=== PATIENT | male | born 1955 | race Caucasian/White ===

== ENCOUNTER 2024-02-25 09:34 | Emergency (ER) | payer MEDICARE, SELFPAY ==
[2024-02-25 09:38] VITALS: BP 126/82
--- NOTE | 2024-02-25 11:06 | ED.GENMED ---
History of Present Illness
General
Chief Complaint: Musculo-Skeletal Complaint
Source: patient
Exam Limitations: none
Time Seen by Provider: 02/25/24 10:03
Nursing documentation reviewed up to this point in time: agreed with
History of Present Illness
History of Present Illness:
The patient is a pleasant 68-year-old man who reports that he stubbed his right fifth toe against a drawer under a bed 2 nights ago. Patient reports that he has had pain in his right fifth toe ever since then. He reports that initially the toes
seemed dislocated but he taped it and now it seems better. Patient reports it was an isolated injury and he did not fall or hit his head.
Past History
Past History
ED Past Medical History: Other (Kidney CA)
ED Past Surgical History: Other (Nephrectomy)
Social History
Tobacco: Non-smoker
Alcohol: Occasional
Drug: None
Personal:
Living: with family
Employment: Other
Family History
Family History: Other
Review of Systems
Review of Systems
Allergies reviewed?: Yes
All Other Systems: ROS reviewed and negative except as documented in HPI and ROS
Constitutional: Reports no symptoms
EENT: Reports no symptoms
Respiratory: Reports no symptoms
Cardiac: Reports no symptoms
ABD/GI: Reports no symptoms
: Reports no symptoms
Musculoskeletal: Reports joint pain and edema
Skin: Reports no symptoms
Neurological: Reports no symptoms
Endocrine: Reports no symptoms
Hematologic/Lymphatic: Reports no symptoms
Psychiatric: Reports no symptoms
Phy Exam
Physical Exam
Physical Exam:
Physical Exam
General: no apparent distress, not acutely ill
Neck: supple.
Heart: Strong pulses in right foot
Lungs: no acute respiratory distress.
Abdomen: Soft
Neuro: alert and oriented. no focal neurological deficits
Skin: No rash, abrasion or laceration of right foot
Psychiatric: well kept. interactive and cooperative
Extremities: Point tenderness of base of fifth right toe. Strong pulses and excellent sensation of right foot
Course
Orders/Labs/Results
Orders:
Orders
02/25/24 09:37
Foot, Right 3 View [CR Foot - Right Min 3 Views] Urgent
Comment:
Reason For Exam: pain, trauma
02/25/24 10:52
Cast Shoe Right-Treatment ONCE
Vital Signs
Initial and Last Documented VS:
Initial Vital Signs
Temp Pulse Resp Pulse Ox
98.1 F 77 18 97
02/25/24 09:37 02/25/24 09:37 02/25/24 09:37 02/25/24 09:37
Last Documented Vital Signs
Temp Pulse Resp BP Pulse Ox
98.1 F 77 18 126/82 97
02/25/24 09:37 02/25/24 09:37 02/25/24 09:37 02/25/24 09:38 02/25/24 09:37
MDM/Problems Addressed
Differential Diagnosis Includes:
Right foot contusion, right 5th toe fracture
MDM/Problems Addressed:
Patient presents with acute right fifth toe pain after stubbing his toe about 36 hours ago
*Radiology
Radiology exam reviewed: preliminary read by ED provider (Right foot x-ray reviewed by me. Right fifth toe fracture seen by me) and radiology read reviewed
*Pulse Oximetry
Patient hypoxic: no
*EKG
Interpreted by ED Provider?: NA
*Crossing Supervisor Interpretation
Rate: Crossing Supervisor- N/A
*Critical Care Note
Total Time (30-74mins, 75-104mins- exclusive of procedures): Not Applicable
Data Reviewed
Source: patient
Patient Management
Social determinants of health affecting care: Living situation and Strong social support
Discussion with other providers: Other (Case discussed with podiatry, Dr. Maya Bella who recommended shoe and follow-up with podiatry. Weight bear as tolerated)
ED Attending Note
-
Portions of this chart may have been created with voice recognition software.� Occasional wrong word or��sound alike� substitutions may have occurred due to the inherent limitations of voice recognition software.
Discharge Plan
Departure
Patient Disposition: Home (Routine Discharge)
Date of Disposition: 02/25/24
Time of Disposition: 10:53
Patient with high blood pressure during this ER visit?: Yes
Condition: Good
Covid-19: Not Applicable
Discharge Problem:
Closed fracture of fifth toe of right foot
Instructions: Toe Fracture ED
Prescriptions:
No Action
cefuroxime axetil 500 MG tablet
500 mg PO BID Qty: 14 0RF
metronidazole 500 MG tablet
500 mg PO TID Qty: 21 0RF
Referrals:
Mary Jo Garcia CRNP [Family Provider] -
Maya Miner, DPM [Specified Professional Personl] - (Call Tuesday to schedule an appointment for this week)
Activity Restrictions/Additional Instructions:
Take 1 g of Tylenol every 4-6 hours for pain. Please wear the shoe at all times except for bathing and sleeping. You can weight-bear as tolerated on your right foot
Interventions
Interventions:
*Risk Screen - Suicide Last Done: 02/25/24 09:36
*General Assessment Last Done: 02/25/24 09:36
*Neglect/Abuse Screening Last Done: 02/25/24 09:36
ED- Fall Risk Assessment Last Done: 02/25/24 10:56
*ED COVID-19 Vaccine History Last Done: 02/25/24 10:56
*Nursing Disposition Last Done: 02/25/24 11:00
ED-Musculoskeletal Assessment Last Done: 02/25/24 10:56
Discharge Date and Time
Discharge Date/Time: 02/25/24 11:01
Print Language: MALAY
== END 2024-02-25 11:01 | disposition home or self-care (01) ==
LOC: EMR 09:34
PROVIDERS: EMERGENCY PHYSICIAN Emergency Medicine; FAMILY PHYSICIAN Nurse Practitioner
DX: S92.501A Displaced unspecified fracture of right lesser toe(s), initial encounter for closed fracture (principal); W22.03XA Walked into furniture, initial encounter; Z85.528 Personal history of other malignant neoplasm of kidney; Z90.5 Acquired absence of kidney
CPT/HCPCS: 99283; 73630

== ENCOUNTER 2025-01-24 06:22 | Day surgery (SDC) | payer MEDICARE, SELFPAY ==
[2025-01-24 08:30] LABS: Glucose - Point of Care 104 mg/dl (70-99)
== END 2025-01-24 09:34 | disposition home or self-care (01) ==
LOC: GI 06:22
PROVIDERS: ATTENDING PHYSICIAN Internal Medicine Gastroenterology
DX: Z12.11 Encounter for screening for malignant neoplasm of colon (principal); K57.30 Diverticulosis of large intestine without perforation or abscess without bleeding; K64.8 Other hemorrhoids; D12.2 Benign neoplasm of ascending colon; Z86.0100 Personal history of colon polyps, unspecified
CPT/HCPCS: 45385; 45380; 82962; 88305